=== PATIENT | female | born 1965 | race Caucasian/White ===

== ENCOUNTER 2016-06-29 12:06 | Outpatient (CLI) | payer OTHER | END 2016-06-29 12:07 | disposition home or self-care (01) | DX: R92.8 Other abnormal and inconclusive findings on diagnostic imaging of breast (principal) ==

== ENCOUNTER 2017-02-06 09:49 | Outpatient (CLI) | payer OTHER ==
[2017-02-06 13:27] LABS: ALBUMIN/GLOBULIN RATIO 1.3 (1.0-2.2); BILIRUBIN,TOTAL 0.8 mg/dL (0.2-1.0); BUN - BLOOD UREA NITROGEN 13 mg/dL (6-20); CALCIUM 9.1 mg/dL (8.5-10.3); CARBON DIOXIDE - CO2 26 mmol/L (21-32); CHLORIDE 104 mmol/L (101-111); CHOL/HDL RATIO 3.6 (<4.4); CHOLESTEROL 168 mg/dL; CREATININE 0.8 mg/dL (0.4-1.0); GFR - MDRD 76 (>89); GLUCOSE 103 mg/dL (70-100); HDL CHOLESTEROL 47 mg/dL; POTASSIUM 3.9 mmol/L (3.5-5.0); SODIUM 136 mmol/L (135-145); TOTAL PROTEIN 7.6 g/dL (6.7-8.2); TRIGLYCERIDES 123 mg/dL; VLDL CHOLESTEROL 25 mg/dL
== END 2017-02-06 09:50 | disposition home or self-care (01) ==
LOC: LAB.WCP 09:49
PROVIDERS: ATTEND Physician Assistant Medical
DX: E78.2 Mixed hyperlipidemia (principal)
CPT/HCPCS: 36415; 80053; 80061

== ENCOUNTER 2017-06-19 10:05 | Outpatient (CLI) | payer OTHER ==
[2017-06-19 13:00] LABS: ALBUMIN 4.2 g/dL (3.2-5.5); ALBUMIN/GLOBULIN RATIO 1.4 (1.0-2.2); ALKALINE PHOSPHATASE 48 IU/L (42-121); ALT ALANINE AMINOTRANSFERASE 23 IU/L (10-60); AST ASPARTATE AMINOTRANSFERASE 19 IU/L (10-42); BILIRUBIN,TOTAL 0.6 mg/dL (0.2-1.0); BUN - BLOOD UREA NITROGEN 13 mg/dL (6-20); CALCIUM 8.8 mg/dL (8.5-10.3); CARBON DIOXIDE - CO2 24 mmol/L (21-32); CHLORIDE 107 mmol/L (101-111); CHOL/HDL RATIO 3.4 (<4.4); CHOLESTEROL 169 mg/dL; CREATININE 0.8 mg/dL (0.4-1.0); GFR - MDRD 76 (>89); GLUCOSE 104 mg/dL (70-100); HDL CHOLESTEROL 50 mg/dL; LDL CHOLESTEROL,CALCULATED 97 mg/dL; LDL/HDL RATIO 1.9 (<4.4); SODIUM 136 mmol/L (135-145); TOTAL PROTEIN 7.2 g/dL (6.7-8.2); VLDL CHOLESTEROL 22 mg/dL
== END 2017-06-19 10:06 | disposition home or self-care (01) ==
LOC: LAB.WCP 10:05
PROVIDERS: ATTEND Physician Assistant Medical
DX: E78.2 Mixed hyperlipidemia (principal)
CPT/HCPCS: 36415; 80053; 80061; 83721

== ENCOUNTER 2017-07-11 13:29 | Outpatient (CLI) | payer OTHER ==
--- NOTE | 2017-07-11 16:40 | XRAY Report ---
THREE VIEW RIGHT KNEE: 07/11/2017 CLINICAL INDICATION: Pain. FINDINGS: AP, lateral, sunrise views of the right knee demonstrate mild osteoarthritis, with small marginal osteophytes. There is no evidence of acute fracture or dislocation. No effusion is present. IMPRESSION: MILD OSTEOARTHRITIS. TD: 07/11/2017 16:39
== END 2017-07-11 13:30 | disposition home or self-care (01) ==
LOC: DI.N 13:29
PROVIDERS: ATTEND Physician Assistant Medical
DX: M17.11 Unilateral primary osteoarthritis, right knee (principal)

== ENCOUNTER 2017-07-27 12:22 | Outpatient (CLI) | payer OTHER ==
--- NOTE | 2017-07-27 17:01 | MRI Report ---
EXAM: RIGHT KNEE MRI WITHOUT CONTRAST EXAM DATE: 07/27/2017 01:16 PM. CLINICAL HISTORY: Knee pain, right. COMPARISON: MRI 10/31/2010. TECHNIQUE: Multiplanar, multisequence T1-weighted and fluid-sensitive sequences of the knee without c ontrast. Other: None. FINDINGS: Evaluation mildly limited by patient motion artifact. Bones: No discrete fracture. Mild to moderate bone marrow edema at the medial compartment, progressed . Cystic changes at the tibial spines. Mild lateral patellar subluxation. Mild lateral subluxation of the tibia relative to the femur. Articular Cartilage: Shallow partial-thickness loss and fissuring/irregularity medial compartment, sl ightly progressed. Moderate-sized region of deep partial to full-thickness loss lateral femoral condy le, new. Shallow partial-thickness loss and fissuring/tearing at the lateral patellar facet extending over the median ridge, slightly progressed. Medial Meniscus: Horizontal tear contacts inferior articular surface of the body and posterior horn a nd extruded versus flipped fragment extends 6 mm into the inferior gutter. Deep partial-thickness rad ial tear at the junction of the posterior horn and root. Lateral Meniscus: Degenerative fraying at the body. Mucoid degeneration anterior cruciate ligament. P osterior cruciate ligament is intact. Cruciate Ligaments: The anterior and posterior cruciate ligaments are intact. Collateral Ligaments: The medial collateral and lateral collateral ligamentous structures are intact. Tendons: The quadriceps, patellar, semimembranosus, and popliteus tendons are unremarkable. Musculature: No edema or fatty atrophy. Other: Large joint effusion with synovitis. Small popliteal cyst with leak No loose bodies. The media l and lateral retinacula are intact. Minimal subcutaneous edema anteriorly. Mild reactive edema in th e fat pads. IMPRESSION: 1. Deep partial-thickness radial tear posterior horn and root medial meniscus. 2. Horizontal tear medial meniscal body and posterior horn with extruded versus flipped fragment exte nding into the inferior gutter. 3. Mucoid degeneration anterior cruciate ligament. 4. Tricompartmental cartilage loss, severe at the lateral compartment, progressed. 5. Large joint effusion with synovitis. 6. Small popliteal cyst with leak. [facility] MUSCULOSKELETAL RADIOLOGY SECTION Referring Provider Line: [phone] SITE ID: [id number]
== END 2017-07-27 12:23 | disposition home or self-care (01) ==
LOC: DI 12:22
PROVIDERS: ATTEND Physician Assistant Medical
DX: M25.561 Pain in right knee (principal)

== ENCOUNTER 2018-10-30 10:50 | Outpatient (CLI) | payer OTHER ==
[2018-10-30 18:57] LABS: ALBUMIN 4.6 g/dL (3.2-5.5); ALBUMIN/GLOBULIN RATIO 1.3 (1.0-2.2); ALKALINE PHOSPHATASE 54 IU/L (42-121); ALT ALANINE AMINOTRANSFERASE 44 IU/L (10-60); AST ASPARTATE AMINOTRANSFERASE 28 IU/L (10-42); BUN - BLOOD UREA NITROGEN 19 mg/dL (6-20); CALCIUM 9.5 mg/dL (8.5-10.3); CARBON DIOXIDE - CO2 25 mmol/L (21-32); CHLORIDE 104 mmol/L (101-111); CHOL/HDL RATIO 4.8 (<4.4); CHOLESTEROL 255 mg/dL; CREATININE 0.8 mg/dL (0.4-1.0); GFR - MDRD 76 (>89); GLUCOSE 95 mg/dL (70-100); HDL CHOLESTEROL 53 mg/dL; LDL CHOLESTEROL,CALCULATED 160 mg/dL; SODIUM 140 mmol/L (135-145); TOTAL PROTEIN 8.1 g/dL (6.7-8.2); VLDL CHOLESTEROL 42 mg/dL
== END 2018-10-30 10:51 | disposition home or self-care (01) ==
LOC: LAB.WCP 10:50
PROVIDERS: ATTEND Physician Assistant Medical
DX: E78.5 Hyperlipidemia, unspecified (principal)
CPT/HCPCS: 36415; 80053; 80061; 83721

== ENCOUNTER 2019-02-17 12:47 | Emergency (ER) | payer OTHER ==
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
[2019-02-17] MEDS ORDERED: KETOROLAC 30 MG/ML VIAL IM STA (14:16)
[2019-02-17] MEDS ORDERED: diazePAM 5 MG TABLET PO STA (14:16)
[2019-02-17] MEDS ORDERED: oxyCODONE 5 MG TABLET PO STA (14:16)
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
[2019-02-17 16:08] VITALS: BP 160/97
== END 2019-02-17 16:11 | disposition home or self-care (01) ==
LOC: ED 12:47
DX: S16.1XXA Strain of muscle, fascia and tendon at neck level, initial encounter (principal); S29.012A Strain of muscle and tendon of back wall of thorax, initial encounter; V43.52XA Car driver injured in collision with other type car in traffic accident, initial encounter; Y92.410 Unspecified street and highway as the place of occurrence of the external cause; M51.36 Other intervertebral disc degeneration, lumbar region
CPT/HCPCS: 72125; 72128; 72131; 96372; 99283; 99284; A9270

== ENCOUNTER 2019-04-18 08:00 | Outpatient (CLI) | payer OTHER ==
[2019-04-18 12:34] LABS: BASOPHILS % (AUTO) 0.4 %; EOSINOPHILS # (AUTO) 0.1 10^3/uL (0.0-0.7); EOSINOPHILS % (AUTO) 2.5 %; HGB - HEMOGLOBIN 13.7 g/dL (12.0-16.0); LYMPHOCYTES # (AUTO) 1.5 10^3/uL (1.5-3.5); LYMPHOCYTES % (AUTO) 29.2 %; MEAN CORPUSCULAR HEMOGLOBIN 30.6 pg (27.0-31.0); MEAN CORPUSCULAR HGB CONC 31.8 g/dL (32.0-36.0); MEAN CORPUSCULAR VOLUME 96.2 fL (81.0-99.0); MEAN PLATELET VOLUME 10.6 fL (7.9-10.8); MONOCYTES # (AUTO) 0.3 10^3/uL (0.0-1.0); MONOCYTES % (AUTO) 6.3 %; NEUTROPHILS # (AUTO) 3.2 10^3/uL (1.5-6.6); NEUTROPHILS % (AUTO) 61.2 %; PLT - PLATELET COUNT 242 10^3/uL (130-450); RED BLOOD COUNT 4.48 10^6/uL (4.20-5.40); RED CELL DISTRIBUTION WIDTH 12.3 % (12.0-15.0); WHITE BLOOD COUNT 5.3 x10^3/uL (4.8-10.8)
[2019-04-18 13:37] LABS: CREATININE 0.8 mg/dL (0.4-1.0)
== END 2019-04-18 23:59 | disposition home or self-care (01) ==
LOC: LAB.WCP 08:00
PROVIDERS: ATTEND Orthopaedic Surgery
DX: Z01.812 Encounter for preprocedural laboratory examination (principal)
CPT/HCPCS: 36415; 80048; 85025

== ENCOUNTER 2019-04-18 13:26 | Outpatient (CLI) | payer OTHER | END 2019-04-18 13:27 | disposition home or self-care (01) | LOC: RT 13:26 | PROVIDERS: ATTEND Orthopaedic Surgery | DX: Z01.818 Encounter for other preprocedural examination (principal) | CPT/HCPCS: 36415; 80048; 85025; 93005 ==

== ENCOUNTER 2019-11-18 14:15 | Outpatient (CLI) | payer BC, OTHER | END 2019-11-18 14:16 | disposition home or self-care (01) | LOC: LAB 14:15 | PROVIDERS: ATTEND Obstetrics & Gynecology | DX: Z00.00 Encounter for general adult medical examination without abnormal findings (principal); N95.9 Unspecified menopausal and perimenopausal disorder | CPT/HCPCS: 36415; 82670; 83001; 84443 ==

== ENCOUNTER 2019-12-04 08:00 | Outpatient (CLI) | payer BC ==
[2019-12-04 19:05] LABS: ALBUMIN 4.4 g/dL (3.2-5.5); ALBUMIN/GLOBULIN RATIO 1.4 (1.0-2.2); ALKALINE PHOSPHATASE 72 IU/L (42-121); ALT ALANINE AMINOTRANSFERASE 50 IU/L (10-60); AST ASPARTATE AMINOTRANSFERASE 24 IU/L (10-42); BILIRUBIN,TOTAL 1.4 mg/dL (0.2-1.0); BUN - BLOOD UREA NITROGEN 18 mg/dL (6-20); CALCIUM 9.2 mg/dL (8.5-10.3); CARBON DIOXIDE - CO2 26 mmol/L (21-32); CHLORIDE 105 mmol/L (101-111); CHOL/HDL RATIO 3.7 (<4.4); CHOLESTEROL 177 mg/dL; CREATININE 0.7 mg/dL (0.4-1.0); GLUCOSE 92 mg/dL (70-100); HDL CHOLESTEROL 48 mg/dL; LDL CHOLESTEROL,CALCULATED 109 mg/dL; LDL/HDL RATIO 2.3 (<4.4); SODIUM 138 mmol/L (135-145); TOTAL PROTEIN 7.6 g/dL (6.7-8.2); VLDL CHOLESTEROL 20 mg/dL
== END 2019-12-04 23:59 | disposition home or self-care (01) ==
LOC: LAB.WCP 08:00
PROVIDERS: ATTEND Physician Assistant Medical
DX: E78.2 Mixed hyperlipidemia (principal); N95.9 Unspecified menopausal and perimenopausal disorder
CPT/HCPCS: 36415; 80053; 80061; 82670; 83001; 83721

== ENCOUNTER 2019-12-31 08:00 | Outpatient (CLI) | payer BC ==
[2019-12-31 18:24] LABS: CANDIDA GROUP DNA NEGATIVE (NEGATIVE); CANDIDA KRUSEI DNA NEGATIVE (NEGATIVE); TRICHOMONAS VAGINALIS DNA NEGATIVE (NEGATIVE)
== END 2019-12-31 23:59 | disposition home or self-care (01) ==
LOC: LAB.R 08:00
PROVIDERS: ATTEND Obstetrics & Gynecology
DX: N76.0 Acute vaginitis (principal)
CPT/HCPCS: 87661; 87801

== ENCOUNTER 2021-03-15 08:00 | Outpatient (CLI) | payer BC ==
[2021-03-15 18:26] LABS: BASOPHILS % (AUTO) 0.9 %; EOSINOPHILS % (AUTO) 2.3 %; HCT - HEMATOCRIT 45.8 % (37.0-47.0); HGB - HEMOGLOBIN 14.7 g/dL (12.0-16.0); MEAN CORPUSCULAR HEMOGLOBIN 31.7 pg (27.0-31.0); MEAN CORPUSCULAR HGB CONC 32.1 g/dL (32.0-36.0); MEAN CORPUSCULAR VOLUME 98.9 fL (81.0-99.0); MEAN PLATELET VOLUME 10.1 fL (7.9-10.8); MONOCYTES % (AUTO) 5.7 %; NEUTROPHILS % (AUTO) 48.8 %; PLT - PLATELET COUNT 268 10^3/uL (130-450); RED BLOOD COUNT 4.63 10^6/uL (4.20-5.40); RED CELL DISTRIBUTION WIDTH 12.2 % (12.0-15.0); WHITE BLOOD COUNT 6.6 x10^3/uL (4.8-10.8)
[2021-03-15 18:36] LABS: ABNORMAL LYMPHS % (MANUAL) 0 %; BAND NEUTROPHILS % (MANUAL) 0 %
[2021-03-15 19:04] LABS: DIFFERENTIAL COMMENT MANUAL DIFFERENTIAL; EOSINOPHILS # (MANUAL) 0.1 10^3/uL (0-0.7); LYMPHOCYTES % (MANUAL) 36 %; MONOCYTES # (MANUAL) 0.2 10^3/uL (0.0-1.0); NEUTROPHILS # (MANUAL) 3.3 10^3/uL (1.5-6.6); PLATELET ESTIMATE, MANUAL NORMAL (130-450,000) (NORMAL); PLATELET MORPHOLOGY NORMAL APPEARANCE (NORMAL); RBC MORPHOLOGY (MULTIPLE) NORMAL APPEARANCE (NORMAL); REACTIVE LYMPHS % (MANUAL) 10 %; WBC MORPHOLOGY (MULTIPLE) NORMAL APPEARANCE (NORMAL)
[2021-03-15 19:08] LABS: ALBUMIN 4.5 g/dL (3.2-5.5); ALBUMIN/GLOBULIN RATIO 1.4 (1.0-2.2); ALKALINE PHOSPHATASE 57 IU/L (42-121); ALT ALANINE AMINOTRANSFERASE 27 IU/L (10-60); AST ASPARTATE AMINOTRANSFERASE 19 IU/L (10-42); BILIRUBIN,TOTAL 0.9 mg/dL (0.2-1.0); BUN - BLOOD UREA NITROGEN 15 mg/dL (6-20); CALCIUM 9.6 mg/dL (8.5-10.3); CARBON DIOXIDE - CO2 29 mmol/L (21-32); CHLORIDE 104 mmol/L (101-111); CHOL/HDL RATIO 3.7 (<4.4); CHOLESTEROL 196 mg/dL; CREATININE 0.8 mg/dL (0.4-1.0); GFR - MDRD 75 (>89); GLUCOSE 90 mg/dL (70-100); HDL CHOLESTEROL 53 mg/dL; LDL CHOLESTEROL,CALCULATED 120 mg/dL; LDL/HDL RATIO 2.3 (<4.4); POTASSIUM 4.3 mmol/L (3.5-5.0); SODIUM 140 mmol/L (135-145); TOTAL PROTEIN 7.8 g/dL (6.7-8.2); TRIGLYCERIDES 114 mg/dL; VLDL CHOLESTEROL 23 mg/dL
[2021-03-15 19:10] LABS: THYROID STIMULATING HORMONE 0.24 uIU/mL (0.34-5.60)
[2021-03-15 19:56] LABS: FREE T4 (FREE THYROXINE) 0.73 ng/dL (0.58-1.64)
== END 2021-03-15 23:59 | disposition home or self-care (01) ==
LOC: LAB.WCP 08:00
PROVIDERS: ATTEND Physician Assistant Medical
DX: Z00.00 Encounter for general adult medical examination without abnormal findings (principal); E87.5 Hyperkalemia; E78.2 Mixed hyperlipidemia
CPT/HCPCS: 36415; 80053; 80061; 83721; 84439; 84443; 85025

== ENCOUNTER 2021-05-23 08:00 | Outpatient (CLI) | payer BC | END 2021-05-23 23:59 | LOC: LAB.N 08:00 | PROVIDERS: ATTEND Family Medicine | DX: R53.83 Other fatigue (principal); R09.81 Nasal congestion; Z20.822 Contact with and (suspected) exposure to COVID-19 ==

== ENCOUNTER 2021-06-30 11:21 | Outpatient (CLI) | payer BC ==
--- NOTE | 2021-07-01 07:21 | Mammography Report ---
BILATERAL DIGITAL SCREENING MAMMOGRAM 3D/2D: 06/30/2021 CLINICAL: Family history of breast cancer. Routine screening. Comparison is made to exams dated: 06/29/2016 mammogram, 11/10/2015 mammogram, 03/24/2015 mammogram, mammogram, 02/13/2014 mammogram, and 02/05/2014 mammogram - [facility]. The re are scattered fibroglandular elements in both breasts. There is an asymmetry in the right breast middle depth central to the nipple seen on the craniocaudal view only. No other significant masses, calcifications, or other findings are seen in either breast. IMPRESSION: INCOMPLETE: NEEDS ADDITIONAL IMAGING EVALUATION The asymmetry in the right breast is indeterminate. Additional views with possible ultrasound are re commended. This exam was interpreted at Station ID: [id number]. NOTE: For mammograms, a report in lay terms will be sent to the patient. Approximately 15% of breast malignancies will not be visualized mammographically. In the management of a palpable breast mass, a negative mammogram must not discourage biopsy of a clinically suspicious lesion. Electronically Signed By: Gorge Perez M.D., jr/farooq:06/30/2021 15:56:31 ACR BI-RADS Category 0: Incomplete 3340F PARENCHYMAL PATTERN: (A) - The breast(s) demonstrate(s) scattered fibroglandular densities. BI-RADS CATEGORY: (0) - 0 Mammo and [place] [id number] Immediate follow-up LATERALITY: (B)
== END 2021-06-30 11:22 | disposition home or self-care (01) ==
LOC: DI.N 11:21
DX: Z12.31 Encounter for screening mammogram for malignant neoplasm of breast (principal); R92.8 Other abnormal and inconclusive findings on diagnostic imaging of breast; Z80.3 Family history of malignant neoplasm of breast

== ENCOUNTER 2022-02-14 16:08 | Outpatient (CLI) | payer BC ==
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
== END 2022-02-14 16:09 | disposition home or self-care (01) ==
LOC: DI.N 16:08
PROVIDERS: ATTEND Physician Assistant Medical
DX: M17.12 Unilateral primary osteoarthritis, left knee (principal)

== ENCOUNTER 2022-02-20 17:51 | Outpatient (CLI) | payer BC ==
--- NOTE | 2022-02-21 17:25 | MRI Report ---
PROCEDURE: Knee LT W/O INDICATIONS: LEFT KNEE PAIN TECHNIQUE: Noncontrast sagittal PD fast spin echo and T2 fast spin echo with fat saturation, sagittal 3-D gradie nt sequence with fat saturation; coronal T1 spin echo and PD fast spin echo with fat saturation, and axial PD fast spin echo with fat saturation through the knee. COMPARISON: None. FINDINGS: Image quality: Excellent. Menisci: Complex oblique tear involving posterior horn of medial meniscus is seen extending to both s uperior and inferior articulating surfaces. Oblique tear involving anterior horn of lateral meniscus is also seen extending to inferior articulating surface. There is peripheral displacement of medial m eniscus bowing medial collateral ligament.. The meniscal root ligaments appear intact. Cruciate ligaments: Thickened anterior cruciate ligament with intrasubstance T2 hyperintense signal i s noted. No ACL rupture. PCL is intact. Medial structures: Low-grade medial collateral ligament sprain is seen. The posterior oblique ligamen t, semimembranosus tendon insertions, and oblique popliteal ligament, and meniscocapsular junction ap pear intact. Visualized portions of the pes anserinus tendons appear normal. No abnormal bursal flu id. Lateral structures: The lateral collateral ligament, long and short heads of the biceps femoris tend on appear intact. The popliteus tendon appears normal; the popliteofibular ligament appears intact. Iliotibial band appears normal. Anterior structures: The quadriceps and patellar tendons appear intact. Patellar alignment is anuel l. No femoral trochlear dysplasia or ventral trochlear prominence. No edema in the infrapatellar fa t pad. Bones and cartilage: Marrow edema in weightbearing portion of medial femoral condyle is seen without discrete fracture line. Mild to moderate tricompartmental osteoarthritis and chondromalacia is seen m ore prominent in medial femoral tibial compartment and lateral portion of patellofemoral compartment. Joint space: There is small to moderate amount of joint fluid. Small popliteal cyst is seen. No tereza s loose bodies. Normal appearing synovial plicae are incidentally noted. IMPRESSION: 1. Mild to moderate tricompartmental osteoarthritis and chondromalacia most notably in medial femoral tibial compartment and lateral portion of patellofemoral compartment. Bony contusion versus changes related to osteoarthritis in weightbearing portion of medial femoral condyle. No fracture or dislocat ion. Small to moderate joint effusion and small popliteal cyst. No gross loose bodies. 2. Complex oblique tear involving posterior horn of medial meniscus extending to both superior and in ferior articulating surfaces. Oblique tear involving anterior horn of lateral meniscus extending to i nferior articulating surface. Peripheral displacement of medial meniscus bowing medial collateral lig ament. 3. Degenerative changes and low-grade intrasubstance partial thickness tear involving anterior crucia te ligament. No full-thickness ACL rupture. PCL is intact. 4. Low-grade MCL sprain. Reviewed by: Ghassan Escobar MD on 02/21/2022 5:23 PM PDT Approved by: Ghassan Escobar MD on 02/21/2022 5:23 PM PDT Station ID: [id number]
== END 2022-02-20 17:52 | disposition home or self-care (01) ==
LOC: DI 17:51
PROVIDERS: ATTEND Physician Assistant Medical
DX: M17.12 Unilateral primary osteoarthritis, left knee (principal); M94.262 Chondromalacia, left knee; M25.462 Effusion, left knee; M71.22 Synovial cyst of popliteal space [Baker], left knee; S83.232A Complex tear of medial meniscus, current injury, left knee, initial encounter; S83.282A Other tear of lateral meniscus, current injury, left knee, initial encounter; S83.412A Sprain of medial collateral ligament of left knee, initial encounter; S83.512A Sprain of anterior cruciate ligament of left knee, initial encounter

== ENCOUNTER 2022-06-27 09:15 | Outpatient (CLI) | payer BC ==
[2022-06-27 11:52] LABS: BASOPHILS # (AUTO) 0.1 10^3/uL (0.0-0.1); EOSINOPHILS # (AUTO) 0.1 10^3/uL (0.0-0.7); EOSINOPHILS % (AUTO) 1.3 %; HCT - HEMATOCRIT 45.2 % (37.0-47.0); HGB - HEMOGLOBIN 14.6 g/dL (12.0-16.0); LYMPHOCYTES # (AUTO) 1.7 10^3/uL (1.5-3.5); LYMPHOCYTES % (AUTO) 33.3 %; MEAN CORPUSCULAR HEMOGLOBIN 30.9 pg (27.0-31.0); MEAN CORPUSCULAR HGB CONC 32.3 g/dL (32.0-36.0); MEAN CORPUSCULAR VOLUME 95.6 fL (81.0-99.0); MEAN PLATELET VOLUME 10.4 fL (7.9-10.8); MONOCYTES # (AUTO) 0.3 10^3/uL (0.0-1.0); NEUTROPHILS # (AUTO) 3.1 10^3/uL (1.5-6.6); PLT - PLATELET COUNT 242 10^3/uL (130-450); RED BLOOD COUNT 4.73 10^6/uL (4.20-5.40); WHITE BLOOD COUNT 5.2 x10^3/uL (4.8-10.8)
[2022-06-27 12:16] LABS: ALBUMIN 4.3 g/dL (3.2-5.5); ALBUMIN/GLOBULIN RATIO 1.2 (1.0-2.2); ALKALINE PHOSPHATASE 54 IU/L (42-121); ALT ALANINE AMINOTRANSFERASE 34 IU/L (10-60); AST ASPARTATE AMINOTRANSFERASE 22 IU/L (10-42); BILIRUBIN,TOTAL 0.7 mg/dL (0.2-1.0); BUN - BLOOD UREA NITROGEN 21 mg/dL (6-20); CALCIUM 9.6 mg/dL (8.5-10.3); CARBON DIOXIDE - CO2 26 mmol/L (21-32); CHLORIDE 108 mmol/L (101-111); CHOLESTEROL 194 mg/dL; CREATININE 0.8 mg/dL (0.4-1.0); GFR - MDRD 74 (>89); GLUCOSE 98 mg/dL (70-100); HDL CHOLESTEROL 64 mg/dL; LDL CHOLESTEROL,CALCULATED 108 mg/dL; LDL/HDL RATIO 1.7 (<4.4); POTASSIUM 4.1 mmol/L (3.5-5.0); SODIUM 138 mmol/L (135-145); TRIGLYCERIDES 110 mg/dL; VLDL CHOLESTEROL 22 mg/dL
[2022-06-27 12:18] LABS: THYROID STIMULATING HORMONE 0.12 uIU/mL (0.34-5.60)
[2022-06-27 12:51] LABS: FREE T4 (FREE THYROXINE) 0.76 ng/dL (0.58-1.64)
== END 2022-06-27 09:16 | disposition home or self-care (01) ==
LOC: LAB.N 09:15
PROVIDERS: ATTEND Physician Assistant Medical
DX: E78.2 Mixed hyperlipidemia (principal); E23.0 Hypopituitarism; R53.83 Other fatigue
CPT/HCPCS: 36415; 80053; 80061; 83721; 84439; 84443; 85025

== ENCOUNTER 2022-07-31 16:31 | Outpatient (CLI) | payer BC ==
--- NOTE | 2022-07-31 18:05 | XRAY Report ---
PROCEDURE: Lumbar Spine 2 View INDICATIONS: LOW BACK PAIN,CHRONIC TECHNIQUE: 3 views of the lumbar spine were acquired. COMPARISON: CT lumbar spine 02/17/2019 FINDINGS: Bones: Transitional lumbosacral anatomy with 6 nonrib-bearing lumbar-type vertebral bodies as per rich or CT. For the purposes of this exam, numbering is as L1-L6. Mild left convexity curvature centered a t L2-L3. Postsurgical changes from L5-L6 fusion. Hardware appears intact. Multilevel degenerative fantasma nges of the lumbar spine present. No vertebral body compression fractures identified. Soft tissues: Overlying bowel gas pattern is normal. No suspicious soft tissue calcifications. IMPRESSION: Post surgical changes from lower lumbar spine fusion. Multilevel degenerative changes of the lumbar s pine are present. If symptoms persist, follow-up radiographs and/or CT or MRI may be helpful for furt her evaluation. Reviewed by: Theron Syed MD on 07/31/2022 6:04 PM PDT Approved by: Theron Syed MD on 07/31/2022 6:04 PM PDT Station ID: [id number]
== END 2022-07-31 16:32 | disposition home or self-care (01) ==
LOC: DI 16:31
PROVIDERS: ATTEND Physician Assistant Medical
DX: M47.816 Spondylosis without myelopathy or radiculopathy, lumbar region (principal); Z98.1 Arthrodesis status

== ENCOUNTER 2022-08-16 15:59 | Outpatient (CLI) | payer BC ==
[~2022-08-16 15:59] MED LIST: GADOBUTROL 10 MMOL/10 ML VIAL ONE
--- NOTE | 2022-08-16 18:41 | MRI Report ---
PROCEDURE: LUMBAR SPINE W/WO INDICATIONS: LOW BACK PAIN CONTRAST: gadavist 9.6ml TECHNIQUE: Noncontrast sagittal T1 spin echo and T2 fast spin echo, sagittal STIR, axial T1 and T2 fast spin ech o through the lumbar spine. In cases with scoliosis, additional coronal T2 fast spin echo may be per formed. After the administration of contrast, sagittal and axial T1 spin echo with fat saturation th rough the lumbar spine. COMPARISON: 04/02/2016. Correlation is also made with lumbar radiographs, 07/31/2022 FINDINGS: Image quality: Excellent. Alignment and curvature: There is normal bony alignment. Marrow: Marrow is of normal overall signal. No acute vertebral body compression fractures. No susp icious marrow enhancement. Spinal cord: Conus medullaris terminates at the T12 level. Visualized spinal cord demonstrates norm al signal, without suspicious enhancement. Paraspinous soft tissues: No paravertebral masses or abnormal enhancement. This patient has transitional anatomy. For the purposes of this examination, the level with last well -developed disc space is considered to be L5-S1. This numbering scheme is chosen to remain consistent with the prior 2015 MRI report. Please note that this numbering scheme differs by 1 level from the r ecent prior lumbar plain films. No definite ribs can be seen at the level considered to be T12 by thi s numbering scheme. T12-L1: At least moderate loss of disc height and disc signal can be seen. Mild to moderate disc bul ge is seen, with a mild central/left disc extrusion, with inferior migration of the disc material. Mi ld to moderate facet hypertrophy is seen. Moderate bilateral neural foraminal narrowing is seen. Moderate central canal narrowing is seen. L1-L2: At least moderate loss of disc height and disc signal can be seen at this level. Reactive m arrow endplate changes are seen, which demonstrate mixed signal and are attributed to a combination o f edema and fatty metaplasia (Modic type I and Modic type II changes). Moderate disc bulge is seen, w hich is eccentric to the right. The central airways are patent. No pleural effusions or pneumothorax can be seen. Mild facet hypertrophy is seen. There is moderate left-sided and moderate to severe rig ht-sided neuroforaminal narrowing. There is a degree of compression seen upon the exiting right L1 ne rve root. Moderate central canal narrowing is seen. L2-L3: The disc height is relatively well preserved. Mild disc bulge is seen. Moderate facet hyp ertrophy is seen. Moderate bilateral neural foraminal narrowing is seen. Mild to moderate central ca nal narrowing is seen. L3-L4: Mild loss of disc height and disc signal are seen. Mild disc bulge is seen. A superimposed central disc protrusion is seen. Mild to moderate facet hypertrophy is seen. There is at least modera te right-sided and moderate to severe left-sided neuroforaminal narrowing. There is a degree of compr ession seen upon the exiting left L3 nerve root. Mild to moderate central canal narrowing is seen. L4-L5: Postoperative changes are seen at this level, with bilateral pedicle screws and vertical fix ation rods. A disc spacer is present at this level. Mild disc bulge is seen. There is at least moder ate left-sided and mild right-sided neuroforaminal line. The central canal is widely patent. L5-S1: The disc height and disc signal are well preserved. Mild disc bulge is seen. Mild facet hypertrophy is seen. No significant neural foraminal or central canal narrowing can be seen. IMPRESSION: Multiple levels of significant lumbar spine degenerative change are seen, which are clearly progresse d at multiple levels compared to 2016. Postoperative change seen at L4-L5. This patient has transitional lumbar anatomy. The numbering scheme of this report is chosen to remain consistent with the prior 2016 MRI report and differs by 1 level from the recent lumbar plain film r eport. Reviewed by: Ruben Lopez MD on 08/16/2022 5:40 PM ESTELLA Approved by: Ruben Lopez MD on 08/16/2022 5:40 PM AKMARNI Station ID: [id number]
[2022-08-16] MEDS ORDERED: GADOBUTROL 10 MMOL/10 ML VIAL IVP ONE (18:51)
== END 2022-08-16 16:00 | disposition home or self-care (01) ==
LOC: DI 15:59
PROVIDERS: ATTEND Physician Assistant Medical
DX: M47.817 Spondylosis without myelopathy or radiculopathy, lumbosacral region (principal); M47.816 Spondylosis without myelopathy or radiculopathy, lumbar region; M47.815 Spondylosis without myelopathy or radiculopathy, thoracolumbar region
CPT/HCPCS: 72158; A9585